=== PATIENT | female | born 1995 | race Caucasian/White ===

== ENCOUNTER 2016-12-29 21:06 | Emergency (ER) | payer OTHER ==
[~2016-12-29 21:06] MED LIST: BACTRIM DS TABL1 TA2 PO; PRENATA CHEWAB1 EAC1 PO; PYRIDIUM PO
[2016-12-29 21:33] LABS: URINE SOURCE CLEAN CATCH
[2016-12-29 21:35] LABS: URINE APPEARANCE CLEAR; URINE BILIRUBIN NEG (NEG); URINE BLOOD NEG (NEG); URINE COLOR YELLOW; URINE GLUCOSE NEG (NORM); URINE KETONE NEG (NEG); URINE LEUKOCYTE ESTERASE NEG (NEG); URINE NITRATE NEG (NEG); URINE PROTEIN TRACE (NEG); URINE SPECIFIC GRAVITY 1.025 (1.003-1.035)
[2016-12-29 21:36] LABS: MICRO INDICATED? NO
[2017-01-01 20:46] LABS: CHLAMYDIA TRACH Detected (Not Detected); N GONOR Not Detected (Not Detected)
== END 2016-12-29 22:19 | disposition home or self-care (01) ==
LOC: SED 21:06
PROVIDERS: Nurse Practitioner Family
DX: M54.9 Dorsalgia, unspecified (principal); F17.210 Nicotine dependence, cigarettes, uncomplicated
CPT/HCPCS: 81003; 84703; 87210; 87491; 87591; 87808; 87905; 99284